=== PATIENT | female | born 1985 | race Caucasian/White ===

== ENCOUNTER 2020-05-21 12:54 | Emergency (ER) | payer OTHER ==
[2020-05-21] MEDS ORDERED: ZOFRAN4 MG PO (14:06)
[2020-05-21] MEDS ORDERED: DOXYCYCLINE HY100 MG PO (14:06)
== END 2020-05-21 14:16 | disposition home or self-care (01) ==
LOC: ER1 12:54
DX: R59.0 Localized enlarged lymph nodes (principal); J45.909 Unspecified asthma, uncomplicated; F17.200 Nicotine dependence, unspecified, uncomplicated
CPT/HCPCS: 99283

== ENCOUNTER → 2020-05-26 | Outpatient (CLI) | payer OTHER ==
[~2020-05-26] MED LIST: DOXYCYCLINE HY100 MG PO; ZOFRAN4 MG PO
== END ==
LOC: RAD 15:41
DX: J98.01 Acute bronchospasm (principal); J84.9 Interstitial pulmonary disease, unspecified
CPT/HCPCS: 71046

== ENCOUNTER → 2020-06-07 | Outpatient (CLI) | payer OTHER | LOC: KOH-I 14:00 | DX: R59.0 Localized enlarged lymph nodes (principal) | CPT/HCPCS: 76536 ==

== ENCOUNTER → 2020-07-25 | Outpatient (CLI) | payer OTHER | LOC: HEART 5 10:59 | DX: R07.9 Chest pain, unspecified (principal) ==

== ENCOUNTER → 2020-07-27 | Outpatient (CLI) | payer OTHER | LOC: HEART 5 09:28 | DX: J45.30 Mild persistent asthma, uncomplicated (principal); R06.2 Wheezing; F17.210 Nicotine dependence, cigarettes, uncomplicated | CPT/HCPCS: 94010; 95012 ==

== ENCOUNTER → 2020-10-25 | Outpatient (CLI) | payer OTHER | LOC: MRI 10-20 13:00 | DX: K76.9 Liver disease, unspecified (principal); R93.2 Abnormal findings on diagnostic imaging of liver and biliary tract | CPT/HCPCS: 74183; A9577 ==

== ENCOUNTER 2021-01-23 02:00 | Emergency (ER) | payer OTHER ==
[2021-01-23 02:50] LABS: HEMOGLOBIN 14.7 gm/dl (12.3-15.3); RED BLOOD COUNT 4.48 M/UL (4.00-5.10); WHITE BLOOD COUNT 8.4 K/UL (4.5-11.0)
[2021-01-23 03:11] LABS: BUN/CREATININE RATIO 10 (0-10)
== END 2021-01-23 06:30 | disposition home or self-care (01) ==
LOC: ER1 02:00
PROVIDERS: Emergency Medicine
DX: R10.31 Right lower quadrant pain (principal); Z88.2 Allergy status to sulfonamides; F17.200 Nicotine dependence, unspecified, uncomplicated
CPT/HCPCS: 80053; 81001; 84703; 85025; 87086; 96374; 96375; 99284; J2270; J2405; Q9967

== ENCOUNTER 2021-09-15 18:56 | Emergency (ER) | payer OTHER | END 2021-09-15 22:18 | disposition left against medical advice (07) | LOC: ER1 18:56 | DX: R42 Dizziness and giddiness (principal); F17.210 Nicotine dependence, cigarettes, uncomplicated; Z88.1 Allergy status to other antibiotic agents; Z88.2 Allergy status to sulfonamides | CPT/HCPCS: 93005; 99281 ==